=== PATIENT | female | born 1965 | race Caucasian/White ===

== ENCOUNTER 2016-11-10 14:23 | Emergency (ER) | payer SELFPAY ==
[2016-11-10 14:28] VITALS: BP 142/95
[2016-11-10] MEDS ORDERED: TORADOL 60 MG VIAL IM ONE (14:47)
[2016-11-10] MEDS ORDERED: TORADOL 60 MG VIAL ONE (14:50)
--- NOTE | 2016-11-10 15:12 | RAD ---
HISTORY: 51-year-old female with pain following stepping in hole. Study: Frontal, lateral and oblique views of the left ankle. Comparison: None. Findings: Talar dome is intact. There is a nondisplaced fracture through the inferior aspect of the lateral mal leolus with significant soft tissue edema about the ankle , predominately along the lateral aspect. T he ankle mortise remains well aligned. The visualized portions of the talus and calcaneus are unrema rkable. IMPRESSION: 1. Nondisplaced fracture of the lateral malleolus with significant soft tissue edema suggestive of p ossible underlying ligamentous injury. Further evaluation with MR may be of benefit in the appropriat e clinical setting. Reported By:
--- NOTE | 2016-11-10 15:13 | RAD ---
FOOT RADIOGRAPHS CLINICAL HISTORY: 51-year-old female with left foot and ankle pain status post stepping in hole. COMPARISON: None. FINDINGS: Frontal, lateral and oblique views of the left foot were obtained. These demonstrate no acu te fracture or malalignment. Significant soft tissue edema about the ankle, predominately along the l ateral aspect. The Lisfranc interval is maintained. The joint spaces are preserved. There is no er osion, aggressive bone lesion or abnormal periosteal reaction. There is no soft tissue calcification or gas. The mineralization is maintained. IMPRESSION: No acute fracture or osseous abnormality is demonstrated on the left foot radiographs with significan t soft tissue edema about the lateral aspect. Reported By:
--- NOTE | 2016-11-10 15:28 | DR.GENAD ---
HPI - PCP Primary Care Physician: NFD - Complaint/Symptoms Chief Complaint Doctors Comments: History as stated Chief Complaint:: PATIENT FELL OFF HER PORCH STEPS AND LANDED IN A HOLE SHE STATED SHE HEARD A LOUD POP IN HER LEFT ANKLE. SWELLING NOTED TO LEFT ANKLE - Source History Provided: Patient - Mode of Arrival Mode of Arrival: Ambulatory - Timing Onset of Chief Complaint: 11/10/16 PMH - PMH Past Medical History: Yes Past Medical History: Hypothyroidism Past Surgical History: Yes Surgical History: Cholecystectomy, Hysterectomy, Ortho Surgery, Thyroidectomy - Family History History of Family Medical Conditions: No - Social History Does patient currently use any type of tobacco product: Yes Have you used tobacco products in the last 12 months: Yes Type of Tobacco Use: Cigarettes How many years tobacco product used: 20 Does any household member use tobacco: Yes Alcohol Use: None Do you use any recreational Drugs:: No Lives With: Family Lives Where: Home - infectious screening In the last 2 months have you had wt loss of >10#?: NO Have you had fever, night sweats or hemotysis?: No Have you traveled outside the country in the last 6 months?: No Isolation: Standard ROS - Review of Systems Eyes: No Symptoms Reported ENTM: No Symptoms Reported Respiratoy: No Symptoms Reported Cardiovascular: No Symptoms Reported Gastrointestinal/Abdominal: No Symptoms Reported Genitourinary: No Symptoms Reported Musculoskeletal: Other (swelling of lateral malleolus left foot) PE - Vital Signs Vitals: Temperature 98.9 F Pulse Rate 84 Respiratory Rate 18 Blood Pressure 142/95 O2 Sat by Pulse Oximetry 100 - General General Appearance: Alert, In No Apparent Distress - Head Head Exam: Atraumatic - Eyes Eye exam: Normal Appearance, PERRL, EOMI - ENT ENT Exam: Normal Exam External Ear Exam: Normal External Inspection TM/Canal Exam: Bilateral Normal Nose Exam: Normal Nose Exam, Sinus Tenderness Mouth Exam: Normal Inspection Throat Exam: Normal Inspection - Neck Neck Exam: Normal Inspection - Chest Chest Inspection: Normal Inspection - Respiratory Respiratory Exam: Normal Lung Sounds Bilat Respiratory Exam: Bilateral Clear to Auscultation - Cardiovascular Cardiovascular Exam: Regular Rate, Normal Rhythm - Abdominal Exam Abdominal Exam: Normal Inspection, Normal Bowel Sounds Abdominal Tenderness: negative: RUQ, RLQ, LUQ, LLQ, Epigastrium, Suprapubic, Diffuse, Mild, Moderate, Severe, Other - Extremities Extremities Exam: Other (swelling of left lateral ankle) - Back Back Exam: Normal Inspection - Neurologic Neurological Exam: Alert, Oriented X3, CN II-XII Intact - Psychiatric Psychiatric Exam: Normal Affect, Normal Mood - Skin Skin Exam: Warm, Dry, Intact ROR - XRAY XRAY Interpreted by: Radiologist (X Ray Ankle (L): A nondisplaced llateral malleolus) - Diagnosis Discharge Problem: Nondisplaced fracture of lateral malleolus of left fibula Qualifiers: Encounter type: initial encounter Fracture type: closed Qualified Code(s): S82.65XA - Nondisplaced fracture of lateral malleolus of left fibula, initial encounter for closed fracture - Discharge Plan Condition: Stable - Follow ups/Referrals Follow ups/Referrals: NFD,None [Primary Care Provider] - 3 days - Instructions
== END 2016-11-10 16:09 | disposition home or self-care (01) ==
LOC: ER 14:37
DX: S82.65XA Nondisplaced fracture of lateral malleolus of left fibula, initial encounter for closed fracture (principal); W10.9XXA Fall (on) (from) unspecified stairs and steps, initial encounter; Y92.9 Unspecified place or not applicable
CPT/HCPCS: 73610; 73630; 96372; 99282; J1885

== ENCOUNTER 2016-12-03 15:49 | Emergency (ER) | payer SELFPAY ==
[2016-12-03 15:57] VITALS: BP 145/90; BMI 35.4
--- NOTE | 2016-12-03 16:12 | DR.EXTPAIN ---
HPI - Time seen Time seen: 14:00 - PCP Primary Care Physician: NFD - Complaint/Symptoms Chief Complaint Doctor Comments: Patient states that her foot is no better. She had a non displaced fracture on the left lateral malleolus. Chief Complaint:: LEFT BROKE ANKLE. FELL TWO TO THREE WEEKS AGO AND CAME HERE FOR X-RAY. Self Treatment fo Chief Complaint: WRAP, KEEPING PROPPED UP. - Source History Provided: Patient - Mode of arrival Mode of Arrival: Ambulatory - Timing Onset of Chief Complaint: 11/12/16 PMH - PMH Past Medical History: Yes Past Medical History: Hypothyroidism Past Surgical History: Yes Surgical History: Cholecystectomy, Hysterectomy, Ortho Surgery, Thyroidectomy - Family History History of Family Medical Conditions: Yes Family Medical History: Cancer, Sudden Cardiac Family Medical History Comment: BRAIN TUMORS - Social History Does patient currently use any type of tobacco product: Yes Have you used tobacco products in the last 12 months: Yes Type of Tobacco Use: Cigarettes How many years tobacco product used: 30 Does any household member use tobacco: No Alcohol Use: None Do you use any recreational Drugs:: No Lives With: Other Lives Where: Home - infectious screening In the last 2 months have you had wt loss of >10#?: NO Have you had fever, night sweats or hemotysis?: No Have you traveled outside the country in the last 6 months?: No Isolation: Standard ROS - Review of Systems Eyes: No Symptoms Reported ENTM: No Symptoms Reported Respiratoy: No Symptoms Reported Cardiovascular: No Symptoms Reported Gastrointestinal/Abdominal: No Symptoms Reported Genitourinary: No Symptoms Reported Neurological: No Symptoms Reported Musculoskeletal: No Symptoms Reported Integumentary: No Symptoms Reported Hematologic/Lymphatic: No Symptoms Reported Endocrine: No Symptoms Reported Psychiatric: No Symptoms Reported, See HPI All Other Systems: Reviewed and Negative PE - Vital Signs Vitals: Temperature 98.4 F Pulse Rate 84 Respiratory Rate 20 Blood Pressure 145/90 O2 Sat by Pulse Oximetry 98 - General Limitations: No Limitations General Appearance: Alert, In No Apparent Distress - Head Head Exam: Normal Inspection, Atraumatic - Eyes Eye exam: Normal Appearance, PERRL, EOMI - ENT ENT Exam: Normal Exam - Neck Neck Exam: Normal Inspection, Full ROM - Chest Chest Inspection: Normal Inspection, Symmetric Chest Wall Rise - Respiratory Respiratory Exam: Normal Lung Sounds Bilat Respiratory Exam: Bilateral Clear to Auscultation - Cardiovascular Cardiovascular Exam: Regular Rate, Normal Rhythm - Abdominal Exam Abdominal Exam: Normal Inspection Abdominal Tenderness: negative: RUQ, RLQ, LUQ, LLQ, Epigastrium, Suprapubic, Diffuse, Mild, Moderate, Severe, Other - Extremities Extremities Exam: Normal Inspection, Full ROM, Edema, Joint Swelling (left ankle /foot) - Upper Extremities Shoulder Exam: Normal Inspection, Full ROM Arm Exam: Normal Inspection Elbow Exam: Normal Inspection Forearm Exam: Normal Inspection Hand Exam: Normal Inspection Neuromotor Exam: Normal Exam Neurosensory Exam: Normal Exam - Lower Extremities Hip/Pelvis Exam: Normal Inspection, Full ROM Upper Leg Exam: Normal Inspection, Full ROM Knee Exam: Normal Inspection Lower Leg Exam: Normal Inspection Ankle Exam: Swelling (left ankle/foot) Foot/Toe Exam: Swelling Neurovascular/Tendon Exam: Normal Capillary Refill Gait Exam: Observed & Limited by Pain - Back Back Exam: Normal Inspection, Full ROM - Neurological Neurological Exam: Alert, Oriented X3, CN II-XII Intact - Psychiatric Psychiatric Exam: Normal Affect - Skin Skin Exam: Warm, Dry, Intact ROR - Labs Reviewed Laboratory Results Reviewed?: Yes (x ray pending) - Diagnosis Discharge Problem: Nondisplaced fracture of lateral malleolus of left fibula, sequela - Discharge Plan Condition: Stable - Follow ups/Referrals Follow ups/Referrals: NFD,None [Primary Care Provider] - 3 days - Instructions
--- NOTE | 2016-12-03 19:18 | RAD ---
EXAM: Left ankle x-ray INDICATION: Ankle swelling and pain COMPARISION: No priors for comparison TECHNIQUE: AP, lateral, and oblique, three views FINDINGS: There is a transverse minimally displaced fracture extending through the tip of the lateral malleolus . There is soft tissue swelling around the ankle, greater laterally. No other fracture identified. No dislocation. There is an ankle joint effusion or hemarthrosis. Joint spaces are preserved. No foreig n body. IMPRESSION: There is a minimally displaced fracture through the tip of the lateral malleolus with associated soft tissue swelling. There is an ankle joint effusion or hemarthrosis. Reported By:
== END 2016-12-03 18:42 | disposition home or self-care (01) ==
LOC: ER 16:02
DX: S82.65XA Nondisplaced fracture of lateral malleolus of left fibula, initial encounter for closed fracture (principal); W19.XXXA Unspecified fall, initial encounter; Y92.9 Unspecified place or not applicable
CPT/HCPCS: 73610; 99282